=== PATIENT | male | born 1965 | race Caucasian/White ===

== ENCOUNTER 2017-01-26 23:34 | Emergency (ER) | payer OTHER ==
[~2017-01-26 23:34] MED LIST: ATI0.5 PO; HYD1C TOP; LIPITOR20 MG PO; PAX20 PO
[2017-01-27 00:41] LABS: BASOPHIL % 0.5 % (0-2); PLATELET COUNT 277 x10^3mcL (130-400)
[2017-01-27 00:42] LABS: RED CELL DISTRIBUTION WIDTH 14.7 % (11.5-14.5)
[2017-01-27 00:46] LABS: AMPHETAMINE QUAL UR NONE DETECTED (NEG <=1000)
[2017-01-27 00:50] LABS: CARBON DIOXIDE 22.7 mmol/L (21-32); CHLORIDE SERUM 100 mmol/L (98-107); SODIUM SERUM 134 mmol/L (136-145)
[2017-01-27 01:03] LABS: ALBUMIN 3.7 g/dL (3.4-5.0); ALKALINE PHOSPHATASE 133 U/L (46-116); ALT/SGPT 68 U/L (16-63); AST/SGOT 41 U/L (15-37); BILIRUBIN TOTAL 0.43 mg/dL (0.20-1.00); CALCIUM 8.5 mg/dL (8.5-10.1); CREATININE SERUM 1.5 mg/dL (0.7-1.3); GFR1 53 mL/min; GLUCOSE SERUM 94 mg/dL (74-106)
[2017-01-27 01:06] LABS: TOTAL PROTEIN, SERUM 8.6 g/dL (6.4-8.2)
[2017-01-27 09:30] VITALS: BP 129/81
== END 2017-01-27 09:30 ==
LOC: ED 23:34
PROVIDERS: Emergency Medicine
DX: S41.112A Laceration without foreign body of left upper arm, initial encounter (principal); F32.9 Major depressive disorder, single episode, unspecified; Z88.8 Allergy status to other drugs, medicaments and biological substances; W45.8XXA Other foreign body or object entering through skin, initial encounter; Y93.89 Activity, other specified; Y99.8 Other external cause status; Y92.89 Other specified places as the place of occurrence of the external cause
CPT/HCPCS: 80307; G0480; Q0092